=== PATIENT | female | born 1980 | race Caucasian/White ===

== ENCOUNTER 2017-08-04 22:52 | Emergency (ER) | payer BC ==
[2017-08-04] MEDS ORDERED: Clindamycin Phosphate 900 MG in Sodium Chloride 0.9% 100 ML IV ONE (23:14)
[2017-08-04] MEDS ORDERED: Ketorolac 30 MG/ML SDV IVPUSH ONE (23:14)
--- NOTE | 2017-08-04 23:18 | EDM.PDOC ---
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 Tooth/Teeth Pain Score (Numeric/FACES): 7 - Related Data Allergies Allergy/AdvReac Type Severity Reaction Status Date / Time No Known Allergies Allergy Verified 08/04/17 23:09 Home Meds: Home Meds Clindamycin HCl 300 mg PO Q6HR PRN 06/03/16 [History] Ketorolac [Toradol] 10 mg PO Q6H PRN 06/03/16 [History] LORazepam 0.5 mg PO QID PRN 06/03/16 [History] Amoxicillin [Amoxicillin] 500 mg PO QID 08/04/17 [History] Methocarbamol [Methocarbamol] 750 mg PO DAILY 08/04/17 [History] Thyroid,Pork [Nature-Throid] 97.5 mcg PO DAILY 08/04/17 [History] Venlafaxine HCl [Venlafaxine ER] 37.5 mg PO DAILY 08/04/17 [History] hydrOXYzine HCl [Atarax] 25 mg PO DAILY PRN 08/04/17 [History] Past Medical History - Past Health History Medical/Surgical History: Denies Medical/Surgical History - Past Surgical History HEENT Surgical History: Reports: Oral Surgery Endocrine Surgical History: Reports: Thyroidectomy Social & Family History - Family History Family Medical History: Noncontributory - Tobacco Use Smoking Status *Q: Never Smoker Second Hand Smoke Exposure: No - Caffeine Use Caffeine Use: Reports: Coffee - Recreational Drug Use Recreational Drug Use: No ED ROS ENT - Review of Systems Review Of Systems: ROS reveals no pertinent complaints other than HPI. ED EXAM, ENT - Physical Exam Exam: See Below Exam Limited By: No Limitations General Appearance: Alert, WD/WN, Mild Distress, Other (pain tearful) Ears: Hearing Grossly Normal Mouth/Throat: Dental Abcess, Dental Pain, Dental Tenderness, Other (left upper back molar area). No: Pharyngeal Erythema Head: Atraumatic Neck: Non-Tender, Full Range of Motion Respiratory/Chest: No Respiratory Distress Cardiovascular: Regular Rate, Rhythm GI/Abdominal: Soft, Non-Tender Neurological: Alert, Oriented, Normal Cognition, Normal Gait, No Motor/Sensory Deficits Psychiatric: Tearful Skin: Warm, Dry, Normal Color Lymphatic: No Adenopathy Course - Vital Signs Last Recorded V/S: Last Vital Signs Temp 36.6 C 08/05/17 00:10 Pulse 96 08/05/17 00:10 Resp 18 08/05/17 00:10 BP 144/103 H 08/05/17 00:10 Pulse Ox 99 08/05/17 00:10 - Orders/Labs/Meds Meds: Medications Discontinued Medications Generic Name Dose Route Start Last Admin Trade Name Andrewq PRN Reason Stop Dose Admin Clindamycin Phosphate 900 mg/ 106 mls @ 200 mls/hr 08/04/17 23:14 08/04/17 23 :28 Sodium Chloride IV 08/04/17 23:45 200 mls/hr ONETIME ONE Administration Ketorolac Tromethamine 15 mg 08/04/17 23:14 08/04/17 23:27 Toradol IVPUSH 08/04/17 23:15 15 mg ONETIME ONE Administration Morphine Sulfate 2 mg 08/04/17 23:55 08/05/17 00:02 Morphine IVPUSH 08/04/17 23:56 2 mg ONETIME ONE Administration Ondansetron HCl 4 mg 08/04/17 23:55 08/05/17 00:02 Zofran IV 08/04/17 23:56 4 mg ONETIME ONE Administration Departure - Departure Time of Disposition: 00:13 Disposition: Home, Self-Care 01 Condition: Good Clinical Impression: Dental abscess - Discharge Information Instructions: Dental Abscess, [id number] Forms: ED Department Discharge Additional Instructions: 1) avoid solid foods, sodas, candies 2) see Dentist 3) recheck as needed 4) stop amoxicillin rx given; [id number] qid x 40
[2017-08-04] MEDS ORDERED: Ondansetron 4 MG/2 ML SDV IV ONE (23:55)
[2017-08-04] MEDS ORDERED: Morphine 2 MG/ML Syringe IVPUSH ONE (23:55)
[2017-08-05 00:11] VITALS: BP 144/103
== END 2017-08-05 00:20 | disposition home or self-care (01) ==
LOC: DL.ED 22:52
DX: K04.7 Periapical abscess without sinus (principal); Z79.899 Other long term (current) drug therapy
CPT/HCPCS: 96365; 96375; 99282; J1885; J2270; J2405; J7050; S0077

== ENCOUNTER 2019-02-24 09:35 | Emergency (ER) | payer BC ==
[2019-02-24 09:46] VITALS: BP 152/95
[2019-02-24] MEDS ORDERED: Dexamethasone 4 MG/ML SDV IM ONE (10:19)
--- NOTE | 2019-02-24 10:30 | EDM.PDOC ---
Scribed by Lillian Gardner 02/24/19 1025 for Henrry Jolley MD ED HPI GENERAL MEDICAL PROBLEM - General Chief Complaint: Lower Extremity Injury/Pain Stated Complaint: PAIN IN HIP GOING DOWN LEG Time Seen by Provider: 02/24/19 10:11 Source of Information: Reports: Patient, RN, RN Notes Reviewed History Limitations: Reports: No Limitations - History of Present Illness INITIAL COMMENTS - FREE TEXT/NARRATIVE: Patient presents to ER by POV. She is complaining of hip pain down leg. Patient states she was walking about 3 weeks ago and developed a pain in foot that went up leg and the more she walked it went into the hip, butt and leg. She states she has bulging discs in her back. Pt had similar pain in 2013 and had a lumbar MRI which showed multilevel lumbar DDD, and L5-S1 disc herniation. Pt denies saddle area numbness, loss of bowel or bladder control, or motor weakness. Denies any recent injury. 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) Left Leg Pain Score (Numeric/FACES): 8 - Related Data Allergies Allergy/AdvReac Type Severity Reaction Status Date / Time No Known Allergies Allergy Verified 02/24/19 09:42 Home Meds: Home Meds Methocarbamol 750 mg PO DAILY 08/04/17 [History] Thyroid,Pork [Nature-Throid] 97.5 mcg PO DAILY 08/04/17 [History] hydrOXYzine HCl [Atarax] 25 mg PO DAILY PRN 08/04/17 [History] Amitriptyline HCl 50 mg PO BEDTIME 02/24/19 [History] Gluc/MSM/C/Apex/Manganese/Kirsty [Joint Support Complex Softgel] 1 each PO DAILY 02/24/19 [History] Past Medical History - Past Health History Medical/Surgical History: Denies Medical/Surgical History HEENT History: Reports: Impaired Vision Respiratory History: Reports: None Gastrointestinal History: Reports: None Genitourinary History: Reports: None 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: Musculoskeletal History: Reports: Back Pain, Chronic, Other (See Below) Other Musculoskeletal History: 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 Neurological History: Reports: None Psychiatric History: Reports: Anxiety Hematologic History: Reports: None Immunologic History: Reports: None Oncologic (Cancer) History: Reports: None Dermatologic History: Reports: None - Infectious Disease History Infectious Disease History: Reports: None - Past Surgical History Head Surgeries/Procedures: Reports: None HEENT Surgical History: Reports: Oral Surgery Endocrine Surgical History: Reports: Parathyroidectomy, Thyroidectomy Social & Family History - Family History Family Medical History: Noncontributory - Tobacco Use Smoking Status *Q: Never Smoker - Caffeine Use Caffeine Use: Reports: Coffee, Tea - Recreational Drug Use Recreational Drug Use: No - Living Situation & Occupation Living situation: Reports: with Family ED ROS GENERAL - Review of Systems Review Of Systems: ROS reveals no pertinent complaints other than HPI. ED EXAM,LOWER BACK PAIN/INJURY - Physical Exam Exam: See Below Exam Limited By: No Limitations General Appearance: Alert, WD/WN, No Apparent Distress Throat/Mouth: Normal Voice, No Airway Compromise Head: Atraumatic, Normocephalic Neck: Normal Inspection, Supple, Non-Tender, Full Range of Motion Respiratory/Chest: No Respiratory Distress, Lungs Clear, Normal Breath Sounds, No Accessory Muscle Use, Chest Non-Tender Cardiovascular: Normal Peripheral Pulses, Regular Rate, Rhythm, No Edema GI/Abdominal: Normal Bowel Sounds, Soft, Non-Tender Back Exam: Full Range of Motion, Muscle Spasm, Paraspinal Tenderness (lumbar region). No: CVA Tenderness (L), CVA Tenderness (R), Vertebral Tenderness Extremities: Normal Inspection, Normal Range of Motion, Non-Tender, No Pedal Edema, Normal Capillary Refill Neurological: Alert, Normal Mood/Affect, Normal Dorsiflexion, Normal Plantar Flexion, Oriented x 3, Difficulty Walking (Antalgic gait, favoring left leg), Other (Normal motor. Slight altered sensation w/decreased sensitivity to light touch and pressure of the left lower extremity compared to the right) Psychiatric: Normal Affect, Normal Mood Skin Exam: Warm, Dry, Intact, Normal Color, No Rash Course - Vital Signs Last Recorded V/S: Last Vital Signs Temp 98.3 F 02/24/19 09:42 Pulse 90 02/24/19 09:42 Resp 18 02/24/19 09:42 BP 152/95 H 02/24/19 09:42 Pulse Ox 100 02/24/19 09:42 - Orders/Labs/Meds Orders: Active Orders 24 hr Category Date Time Status Orphenadrine [Norflex] Med 02/24/19 10:20 Once 60 mg IM ONETIME ONE dexAMETHasone [Dexamethasone] Med 02/24/19 10:19 Once 8 mg IM ONETIME ONE - Re-Assessments/Exams Free Text/Narrative Re-Assessment/Exam: 02/24/19 10:25 Lumbar MRI from 09/01/2014 report reviewed by me. Departure - Departure Time of Disposition: 10:26 Disposition: Home, Self-Care 01 Condition: Good Clinical Impression: Lumbar back pain with radiculopathy affecting left lower extremity, Degenerative disc disease, lumbar, History of herniated intervertebral disc - Discharge Information *PRESCRIPTION DRUG MONITORING PROGRAM REVIEWED*: No *COPY OF PRESCRIPTION DRUG MONITORING REPORT IN PATIENT ROSALIA: No Instructions: Lumbosacral Radiculopathy, Degenerative Disk Disease, Herniated Disk Forms: ED Department Discharge Additional Instructions: Rx: Decadron (Dexamethasone) 4mg Rx: Orphenadrine 100mg Follow up in clinic this week for recheck and consideration of lumbar MRI, and referral to specialist if needed. - My Orders Last 24 Hours: My Active Orders 02/24/19 10:19 dexAMETHasone [Dexamethasone] 8 mg IM ONETIME ONE 02/24/19 10:20 Orphenadrine [Norflex] 60 mg IM ONETIME ONE - Assessment/Plan Last 24 Hours: My Active Orders 02/24/19 10:19 dexAMETHasone [Dexamethasone] 8 mg IM ONETIME ONE 02/24/19 10:20 Orphenadrine [Norflex] 60 mg IM ONETIME ONE I have read and agree with the documentation that has been completed regarding this visit. By signing this record, I attest that the documentation was completed in my physical presence and is an accurate record of the encounter.
== END 2019-02-24 10:41 | disposition home or self-care (01) ==
LOC: DL.ED 09:35
DX: M54.16 Radiculopathy, lumbar region (principal); M51.36 Other intervertebral disc degeneration, lumbar region; Z79.899 Other long term (current) drug therapy
CPT/HCPCS: 96372; 99283; J1100; J2360

== ENCOUNTER → 2019-03-01 | Outpatient (CLI) | payer BC | LOC: DL.MRI 12:47 | PROVIDERS: ATTEND Nurse Practitioner | DX: M51.16 Intervertebral disc disorders with radiculopathy, lumbar region (principal); M51.17 Intervertebral disc disorders with radiculopathy, lumbosacral region; G89.29 Other chronic pain; R20.0 Anesthesia of skin; R29.898 Other symptoms and signs involving the musculoskeletal system; M48.061 Spinal stenosis, lumbar region without neurogenic claudication; M48.07 Spinal stenosis, lumbosacral region | CPT/HCPCS: 72141; 72148 ==